=== PATIENT | male | born 1970 | race Caucasian/White ===

== ENCOUNTER 2018-07-15 23:18 | Emergency (ER) | payer OTHER ==
[~2018-07-15] VITALS: Ht 170.2 cm; Wt 79.4 kg
[2018-07-15 23:27] VITALS: BP 176/92
[2018-07-16] MEDS ORDERED: KEFLEX500 M1 PO (00:53)
[2018-07-16] MEDS ORDERED: MEDROL4 M2 PO (00:53)
[2018-07-16] MEDS ORDERED: BACTRIM DS TAB1 EACH PO (00:53)
--- NOTE | 2018-07-16 00:53 | ED GENERAL ADULT ---
History of Present Illness General Chief Complaint: General Adult Stated Complaint: ?INFECTION ON R HAND/WRIST FROM BEE STING Source: patient Exam Limitations: no limitations Vital Signs & Intake/Output Vital Signs & Intake/Output Vital Signs Date Time Temp Pulse Resp B/P B/P Pulse O2 O2 Flow FiO2 Mean Ox Delivery Rate 07/16 0007 Room Air 07/15 2327 97.0 89 18 176/92 97 Room Air ED Intake and Output 07/16 0000 07/15 1200 Intake Total Output Total Balance Patient 175 lb Weight Weight Reported by Patient Measurement Method Allergies Coded Allergies: No Known Allergies (07/15/18) Triage Note: PT TO TRIAGE S/P BEE STING 2 DAYS AGO. R WRIST/FOREARM RED,SWOLLEN, WARM TO TOUCH. +PULSES, +ROM. Triage Nurses Notes Reviewed? yes Onset: Gradual Duration: day(s): Timing: constna (t) HPI: 47-year-old otherwise healthy male presenting with bee sting to his right wrist 2 days ago. Patient reports gets a handful of bee stings each year that normally resolve quickly. The current site has had worsening erythema over the past few days. A friend of his is a physician and referred him to the emergency department due to concerns for superimposed cellulitis. Denies fevers, nausea, vomiting, purulent drainage. No known allergies to bees. Denies difficulty swallowing, lip/tongue swelling, chest pain, shortness of breath, abdominal pain , nausea, vomiting. (Verna Martinez) Reconcile Medications Cephalexin (Keflex) 500 MG CAPSULE 1 CAP PO Q4 cellulitis Methylprednisolone. (Medrol) 4 MG TAB.DS.PK 1 DP PO AD bee sting 6 on day 1 then reduce by one tablet daily until gone Sulfamethoxazole/Trimethoprim (Bactrim Ds Tablet) 800 MG-160 MG TABLET 1 TAB PO BID cellulitis (Andreia CONSTANTINO,Zurdo Minor) Past History Travel History Traveled to [place] past 21 day No Medical History Any Pertinent Medical History? 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 No (Verna Martinez) Review of Systems Review of Systems Constitutional: Reports: no symptoms. EENTM: Reports: no symptoms. Respiratory: Reports: no symptoms. Cardiovascular: Reports: no symptoms. GI: Reports: no symptoms. Genitourinary: Reports: no symptoms. Musculoskeletal: Reports: no symptoms. Skin: Reports: see HPI. Neurological/Psychological: Reports: no symptoms. Hematologic/Endocrine: Reports: no symptoms. Immunologic/Allergic: Reports: no symptoms. All Other Systems: Reviewed and Negative (Verna Martinez) Physical Exam Physical Exam General Appearance: well developed/nourished, no apparent distress, alert, awake Comments: Gen.: Well-nourished, well-developed, no acute distress. Head: Normocephalic, atraumatic. Eyes: Normal inspection bilaterally Ears: Normal inspection bilaterally Nose: Normal inspection Neck: Normal inspection Lungs: clear to auscultation bilaterally, normnal breath sounds Heart: regular rate and rhythm Abdomen: soft and non-tender Extremities: Localized erythema to the right wrist, unrestricted range of motion at the wrist, the extremity is neurovascularly intact with 2+ radial pulse. Neurologic: alert and oriented x3, steady gait Skin: warm and dry Psychiatric: Normal mood and affect, no apparent delusions or hallucinations, behavior appropriate Core Measures ACS in differential dx? No CVA/TIA Diagnosis: No Sepsis Present: No Sepsis Focused Exam Completed? No (Verna Martinez) Progress Differential Diagnoses I considered the following diagnoses in my evaluation of the patient: [Localized allergic reaction versus cellulitis versus abscess, low concern for sepsis] Initial ED EKG: none (Verna Martinez) Differential Diagnoses I considered the following diagnoses in my evaluation of the patient: Cellulitis , abscess, local histamine reaction, contusion, hemorrhage/hematoma Plan of Care: Orders Procedure Date/time Status LACTIC ACID 07/16 0308 Active LACTIC ACID 07/16 8 Active COMPREHENSIVE METABOLIC PANEL 07/16 8 Active CBC WITHOUT DIFFERENTIAL 07/16 8 Active Current Medications Sig/Whitney Start time Last Medication Dose Stop Time Status Admin Tetanus/Diphtheria 0.5 ML ONCE ONE 07/16 0100 CANr Toxoids Adsorbed 07/16 010 (Decavac) Vancomycin HCl 1,000 MG ONCE ONE 07/16 0015 AC 07/16 Sodium Chloride 250 ML 07/16 011 0027 (Normal Saline 0.9%) Laboratory Tests 07/16/18 0019: CBC w Diff Pending, WBC Pending, RBC Pending, Hgb Pending, Hct Pending, MCV Pending, MCH Pending, MCHC Pending, RDW Pending, Plt Count Pending, MPV Pending Labs unremarkable including normal WBC and lactic acid. Vital signs are within normal limits. Patient is nontoxic appearing. We will treat as a superimposed cellulitis of his bee sting given a single dose of vancomycin in the emergency department. Will discharge home with Rx Keflex and Bactrim. Given strict return precautions. Patient signed out to Dr. Boswell with vancomycin infusion finishing. 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 (Andreia CONSTANTINO,Zurdo Minor) Departure Departure Disposition: HOME OR SELF CARE Condition: Stable Clinical Impression Primary Impression: Bee sting Secondary Impressions: Cellulitis Referrals: Patient Has No Primary Care Dr (PCP/Family) Departure Forms: Customer Survey General Discharge Information (Verna Martinez) Departure Additional Instructions: Take Keflex, Bactrim, and Medrol Dosepak as prescribed. Follow-up with a primary care provider for reevaluation and to establish care. Return to the emergency department for any new or worsening symptoms. If your redness and swelling are not improving after 2-3 days on the antibiotics you should return to the emergency department for reevaluation. If you do not currently have a primary care physician then please contact the [place] primary care practice at the following phone number: . Prescriptions: Current Visit Scripts Methylprednisolone. (Medrol) 1 DP PO AD #1 DP 6 on day 1 then reduce by one tablet daily until gone Cephalexin (Keflex) 1 CAP PO Q4 #40 CAP Sulfamethoxazole/Trimethoprim (Bactrim Ds Tablet) 1 TAB PO BID #20 TAB (Andreia CONSTANTINO,Zurdo Minor) Critical Care Note Critical Care Note Critical Care Time: non-applicable (Verna Martinez)
[2018-07-16 01:01] LABS: ABSOLUTE BASOPHIL COUNT 0.1 /CUMM (0.0-0.2); ABSOLUTE EOSINOPHIL COUNT 0.2 /CUMM (0.0-0.7); ABSOLUTE LYMPH COUNT 2.1 /CUMM (1.2-3.4); ABSOLUTE MONOCYTE COUNT 0.5 /CUMM (0.10-0.60); BASOPHIL % 0.9 % (0.0-2.0); EOSINOPHIL % 3.3 % (0-5); GRANULOCYTE % 51.5 % (42.2-75.2); HEMATOCRIT 43.2 % (42-52); MEAN CORPUSCULAR HGB 30.7 PG (27.0-31.0); MEAN CORPUSCULAR HGB CONC 34.8 G/DL (33.0-37.0); MEAN CORPUSCULAR VOLUME 88.2 FL (80.0-94.0); PLATELET COUNT 134 /CUMM (130-400); RBC DISTRIBUTION WIDTH 12.8 % (11.5-14.5); WHITE BLOOD CELL COUNT 5.9 /CUMM (4.8-10.8)
== END 2018-07-16 01:57 ==
LOC: ERH 23:18
PROVIDERS: Physician Assistant
DX: T63.441A Toxic effect of venom of bees, accidental (unintentional), initial encounter (principal); L03.113 Cellulitis of right upper limb
CPT/HCPCS: 96374; 96375; J2930; J3370; J7040